=== PATIENT | male | born 1970 | race Caucasian/White ===

== ENCOUNTER 2024-04-03 15:52 | Emergency (ER) | payer BC ==
[2024-04-03] MEDS ORDERED: LIDOCAINE 1% 20 ML MDV ONE (16:08)
--- NOTE | 2024-04-03 17:20 | ER ---
Nurse's Notes [facility] Name: Mercedes Thakur Age: 53 yrs Sex: Male : 1970 Arrival Date: 04/03/2024 Time: 15:52 Bed 10 Private MD: Diagnosis: Laceration without foreign body, left lower leg Presentation: 04/03 16:12 Chief complaint: Laceration to left lower leg from chainsaw just [employer]. Bleeding hb controlled. Coronavirus screen: At this time, the client does not indicate any symptoms associated with coronavirus-19. Ebola Screen: No symptoms or risks identified at this time. Complicating Factors: There are no complicating factors for this patient. Initial Sepsis Screen: Does the patient meet any 2 criteria? No. Patient's initial sepsis screen is negative. Does the patient have a suspected source of infection? No. Patient's initial sepsis screen is negative. Risk Assessment: Do you want to hurt yourself or someone else? Patient reports no desire to harm self or others. Onset of symptoms was April 03, 2024. 16:12 Method Of Arrival: Ambulatory 16:12 Acuity: SANTO 4 hb Triage Assessment: 16:22 General: Appears in no apparent distress. comfortable, Behavior is calm, cooperative. le1 Pain: Denies pain. Neuro: No deficits noted. Cardiovascular: No deficits noted. Respiratory: No deficits noted. Injury Description: Laceration sustained to left ayon is bleeding moderately, is bleeding a small amount. Historical: - Allergies: 16:13 No Known Allergies; hb - Home Meds: 16:13 None [Active]; hb - PMHx: 16:13 None; hb - PSHx: 16:13 Left Knee Replacement; hb - Immunization history:: Adult Immunizations up to date. - Infectious Disease History:: Denies. - Social history:: Smoking status: Patient denies any tobacco usage or history of. - Family history:: not pertinent. - Hospitalizations: : No recent hospitalization is reported. Screenin:21 [facility] ED Fall Risk Assessment (Adult) History of falling in the last 3 months, le1 including since admission No falls in past 3 months (0 pts) Confusion or Disorientation No (0 pts) Intoxicated or Sedated No (0 pts) Impaired Gait No (0 pts) Mobility Assist Device Used No (0 pt) Altered Elimination No (0 pt) Score/Fall Risk Level 0 - 2 = Low Risk Oriented to surroundings, Maintained a safe environment, Educated pt \T\ family on fall prevention, incl call for assistance when getting out of bed, Assessed \T\ reinforced patient's understanding of fall precautions, Hourly rounding (assess needs \T\ fall precautionary measures) done. Abuse screen: Denies threats or abuse. Denies injuries from another. Nutritional screening: No deficits noted. Tuberculosis screening: No symptoms or risk factors identified. Assessment: 16:23 Musculoskeletal: No deficits noted. le1 Vital Signs: 16:12 BP 140 / 79; Pulse 72; Resp 16; Temp 97.3; Pulse Ox 99% on R/A; Weight 108.86 kg; hb Height 6 ft. 0 in. ; Pain 1/10; 18:04 BP 127 / 77; Pulse 65; Resp 16; Temp 98.2; Pulse Ox 98% on R/A; Pain 0/10; le1 16:12 Body Mass Index 32.55 (108.86 kg, 182.88 cm) hb 16:12 Pain Scale: Adult hb 18:04 Pain Scale: Adult le1 ED Course: 15:55 Patient arrived in ED. im 16:02 Bartolome Villagran MD is Attending Physician. rn 16:08 Angel Esquivel RN is Primary Nurse. le1 16:13 Triage completed. hb 16:14 Arm band placed on. hb 16:23 Provided Education on: use call light if needed. le1 16:23 Patient has correct armband on for positive identification. Bed in low position. Call le1 light in reach. 18:05 No provider procedures requiring assistance completed. Patient did not have IV access le1 during this emergency room visit. Administered Medications: 16:20 Drug: Lidocaine Infiltration (1 %) 1 vials 20 ml Infiltration once; to bedside {Note: le1 Administered by provider.} Volume: 20 ml; Route: Infiltration; Site: affected area; Medication: 16:23 VIS not applicable for this client. le1 Outcome: 17:19 Discharge ordered by . rn 18:05 Discharged to home ambulatory, le1 18:05 Condition: improved 18:05 Discharge instructions given to patient, Instructed on discharge instructions, follow up and referral plans. medication usage, Demonstrated understanding of instructions, follow-up care, medications, Prescriptions given X 1, 18:05 Patient left the ED. le1 Signatures: Bartolome Villagran MD MD rn Baxter, Heather, RN RN hb Mendoza, Itzel im English, LaKendric, RN RN le1
--- NOTE | 2024-04-03 17:20 | EDPHYS ---
Physician Documentation [facility] Name: Mercedes Thakur Age: 53 yrs Sex: Male : 1970 Arrival Date: 04/03/2024 Time: 15:52 Bed 10 Private MD: ED Physician Bartolome Villagran HPI: 04/03 16:32 This 53 yrs old Male presents to ER via Ambulatory with complaints of Laceration To Leg.rn 16:32 The patient has a laceration related to: doing yard work, occurred at home, and there rn are no complicating factors. The laceration(s) is(are) located on the left leg. Onset: The symptoms/episode began/occurred just prior to arrival. The patient has not experienced similar symptoms in the past. 16:32 Patient accidentally cut himself with a chainsaw, was clean blade, already got in the rn shower and put antibacterial wash as well as irrigated it. States last tetanus 2 years ago.. Historical: - Allergies: 16:13 No Known Allergies; hb - Home Meds: 16:13 None [Active]; hb - PMHx: 16:13 None; hb - PSHx: 16:13 Left Knee Replacement; hb - Immunization history:: Adult Immunizations up to date. - Infectious Disease History:: Denies. - Social history:: Smoking status: Patient denies any tobacco usage or history of. - Family history:: not pertinent. - Hospitalizations: : No recent hospitalization is reported. ROS: 16:32 Constitutional: Negative for fever, chills, and weight loss, MS/Extremity: Positive for rn laceration to the left leg Exam: 16:32 Constitutional: This is a well developed, well nourished patient who is awake, alert, rn and in no acute distress. MS/ Extremity: Pulses equal, no cyanosis. Neurovascular intact. Full, normal range of motion. Equal circumference. 10 cm clean laceration, superficial, mid to distal pretibial region of the left leg. No active bleeding. No foreign body. Vital Signs: 16:12 BP 140 / 79; Pulse 72; Resp 16; Temp 97.3; Pulse Ox 99% on R/A; Weight 108.86 kg; hb Height 6 ft. 0 in. ; Pain 1/10; 18:04 BP 127 / 77; Pulse 65; Resp 16; Temp 98.2; Pulse Ox 98% on R/A; Pain 0/10; le1 16:12 Body Mass Index 32.55 (108.86 kg, 182.88 cm) hb 16:12 Pain Scale: Adult hb 18:04 Pain Scale: Adult le1 Laceration: 17:17 Wound Repair of 10cm ( 3.9in ) subcutaneous laceration to left ayon. Distal rn neuro/vascular/tendon intact. Anesthesia: Wound infiltrated with 4 mls of 1% lidocaine. Wound prep: Extensive cleansing with betadine with hibiclenz, Wound irrigation with saline, Wound explored. Skin closed with 13 3-0 Prolene using interrupted sutures and sterile technique. Dressed with Kerlix. Patient tolerated well. MDM: 16:02 Patient medically screened. rn 17:17 Differential diagnosis: superficial laceration. Data reviewed: vital signs, nurses rn notes, and as a result, I will discharge patient. Counseling: I had a detailed discussion with the patient and/or guardian regarding the historical points, exam findings, and any diagnostic results supporting the discharge/admit diagnosis, the need for outpatient follow up, to return to the emergency department if symptoms worsen or persist or if there are any questions or concerns that arise at home. Special discussion: I discussed with the patient/guardian in detail that at this point there is no indication for admission to the hospital. It is understood, however, that if the symptoms persist or worsen the patient needs to return immediately for re-evaluation. 04/03 16:08 Order name: Suture Tray at Bedside; Complete Time: 16:19 rn 04/03 16:08 Order name: Wound Care; Complete Time: 16:20 rn 04/03 16:08 Order name: Wound dressing; Complete Time: 16:20 rn Administered Medications: 16:20 Drug: Lidocaine Infiltration (1 %) 1 vials 20 ml Infiltration once; to bedside {Note: le1 Administered by provider.} Volume: 20 ml; Route: Infiltration; Site: affected area; Disposition Summary: 04/03/24 17:19 Discharge Ordered Notes: Location: Home rn Problem: new rn Symptoms: have improved rn Condition: Stable rn Diagnosis - Laceration without foreign body, left lower leg rn Followup: rn - With: Private Physician - When: 14 days - Reason: Staple/Suture removal Discharge Instructions: - Discharge Summary Sheet rn - Laceration Care, Adult rn Forms: - Medication Reconciliation Form rn - Antibiotic rn enterostomal - Prescription Opioid Use rn - Patient Portal Instructions rn - Leadership Thank You Letter rn Prescriptions: - Cephalexin 500 mg Oral Capsule - take 1 capsule ORAL route every 12 hours for 10 days; 20 capsule; Refills: 0, rn Product Selection Permitted Signatures: Bartolome Villagran MD MD rn Baxter, Heather, RN RN hb English, LaKendric RN RN le1
[2024-04-03 18:11] VITALS: BP 127/77; TEMP 98.2; O2SAT 98
== END 2024-04-03 18:05 | disposition home or self-care (01) ==
LOC: ER 15:52
PROC: 0HQLXZZ Repair Left Lower Leg Skin, External Approach (ICD-10-PCS; principal; 2024-04-03)
DX: S81.812A Laceration without foreign body, left lower leg, initial encounter (principal)
CPT/HCPCS: 99283; 12004; J2001

== ENCOUNTER 2024-04-22 13:29 | Emergency (ER) | payer BC ==
--- NOTE | 2024-04-22 13:46 | EDPHYS ---
Physician Documentation [facility] Name: Mercedes Thakur Age: 53 yrs Sex: Male : 1970 Arrival Date: 04/22/2024 Time: 13:29 Bed IW1 Private MD: ED Physician Ramos Cain HPI: 04/22 13:46 This 53 yrs old Male presents to ER via Ambulatory with complaints of Suture Removal. kb 13:46 Pt is a 53 year old male who presents to have sutures removed from left lower leg. kb States he had sutures placed 20 days ago. Has had no problems, drainage, redness, warmth, fever. . Historical: - Allergies: 13:39 No Known Allergies; kc6 - Home Meds: 13:39 None [Active]; kc6 - PMHx: 13:39 None; kc6 - PSHx: 13:39 Left knee replacement; kc6 - Immunization history:: Adult Immunizations up to date. - Infectious Disease History:: Denies. - Social history:: Smoking status: Patient denies any tobacco usage or history of. ROS: 13:44 Constitutional: As per HPI kb Exam: 13:44 Constitutional: This is a well developed, well nourished patient who is awake, alert, kb and in no acute distress. Head/Face: Normocephalic, atraumatic. ENT: Moist Mucous membranes Cardiovascular: Regular rate Respiratory: Respirations even and unlabored. No increased work of breathing. Talking in full sentences MS/ Extremity: Pulses equal, no cyanosis. Neurovascular intact. Full, normal range of motion. Neuro: Awake and alert, GCS 15, oriented to person, place, time, and situation. Moves all extremities. Normal gait. 13:44 Skin: Wound recheck: Suture laceration closure: the wound is healing well, the edges are well approximated, no evidence of dehiscence, no drainage, no erythema, no swelling, Vital Signs: 13:38 Weight 108.86 kg (R); Height 6 ft. 0 in. (R); Pain 0/10; kc6 13:44 BP 132 / 88; Pulse 71; Resp 17 S; Temp 98(TE); Pulse Ox 100% on R/A; kc6 13:38 Body Mass Index 32.55 (108.86 kg, 182.88 cm) kc6 13:38 Pain Scale: Adult kc6 Procedures: 13:45 Suture/Staple removal: Removed 12 sutures, from left ayon, site appears well healed, kb Patient tolerated well. MDM: 13:33 Patient medically screened. kb 13:45 Data reviewed: vital signs, nurses notes. Counseling: I had a detailed discussion with kb the patient and/or guardian regarding the historical points, exam findings, and any diagnostic results supporting the discharge/admit diagnosis, the need for outpatient follow up, a family practitioner, to return to the emergency department if symptoms worsen or persist or if there are any questions or concerns that arise at home. Administered Medications: No medications were administered Disposition: 18:47 I was immediately available on-site in the Emergency Department for consultation in the ms3 care of the patient. Disposition Summary: 04/22/24 13:46 Discharge Ordered Notes: Location: Home kb Condition: Stable kb Diagnosis - Encounter for removal of sutures kb Followup: kb - With: Emergency Department - When: As needed - Reason: Worsening of condition Followup: kb - With: Private Physician - When: 2 - 3 days - Reason: Recheck today's complaints, Continuance of care, Re-evaluation by your physician Discharge Instructions: - Discharge Summary Sheet kb - Suture Removal, Care After kb Forms: - Medication Reconciliation Form kb - Antibiotic Education kb - Prescription Opioid Use kb - Patient Portal Instructions kb - Leadership Thank You Letter kb Signatures: Marcia Weiss FNP-C FNP-Ramos Jensen DO DO ms3 Jennifer Fernandez, RN RN kc6
--- NOTE | 2024-04-22 13:46 | ER ---
Nurse's Notes [facility] Name: Mercedes Thakur Age: 53 yrs Sex: Male : 1970 Arrival Date: 04/22/2024 Time: 13:29 Bed IW1 Private MD: Diagnosis: Encounter for removal of sutures Presentation: 04/22 13:38 Chief complaint: Patient states: he took a chainsaw to the leg twenty days ago and is kc6 here to get the sutures removed from the LLE. Coronavirus screen: At this time, the client does not indicate any symptoms associated with coronavirus-19. Ebola Screen: No symptoms or risks identified at this time. Initial Sepsis Screen: Does the patient meet any 2 criteria? No. Patient's initial sepsis screen is negative. Does the patient have a suspected source of infection? No. Patient's initial sepsis screen is negative. Risk Assessment: Do you want to hurt yourself or someone else? Patient reports no desire to harm self or others. Onset of symptoms was April 22, 2024. 13:38 Method Of Arrival: Ambulatory [facility] 13:38 Acuity: SANTO 4 6 Triage Assessment: 13:39 General: Appears in no apparent distress. comfortable, well groomed, well developed, [facility] Behavior is calm, cooperative, appropriate for age. Pain: Denies pain. Historical: - Allergies: 13:39 No Known Allergies; kc6 - Home Meds: 13:39 None [Active]; kc6 - PMHx: 13:39 None; kc6 - PSHx: 13:39 Left knee replacement; kc6 - Immunization history:: Adult Immunizations up to date. - Infectious Disease History:: Denies. - Social history:: Smoking status: Patient denies any tobacco usage or history of. Screenin:40 [facility] ED Fall Risk Assessment (Adult) History of falling in the last 3 months, kc6 including since admission No falls in past 3 months (0 pts) Confusion or Disorientation No (0 pts) Intoxicated or Sedated No (0 pts) Impaired Gait No (0 pts) Mobility Assist Device Used No (0 pt) Altered Elimination No (0 pt) Score/Fall Risk Level 0 - 2 = Low Risk Oriented to surroundings. Abuse screen: Denies threats or abuse. Denies injuries from another. Nutritional screening: No deficits noted. Tuberculosis screening: No symptoms or risk factors identified. Assessment: 13:41 Reassessment: TABATHA Chong in triage removing sutures from LLE. kc6 Vital Signs: 13:38 Weight 108.86 kg (R); Height 6 ft. 0 in. (R); Pain 0/10; kc6 13:44 BP 132 / 88; Pulse 71; Resp 17 S; Temp 98(TE); Pulse Ox 100% on R/A; kc6 13:38 Body Mass Index 32.55 (108.86 kg, 182.88 cm) kc6 13:38 Pain Scale: Adult kc6 ED Course: 13:31 Patient arrived in ED. im 13:32 [facility] kb 13:32 Ramos Cain DO is Attending Physician. kb 13:39 Triage completed. kc6 13:39 Arm band placed on. kc6 13:40 Patient has correct armband on for positive identification. kc6 13:46 Removal of Removed sutures from left ayon Suture site is well healed Patient tolerated kc6 well. 13:46 No provider procedures requiring assistance completed. Patient did not have IV access kc6 during this emergency room visit. Patient maintains SpO2 saturation greater than 95% on room air. Administered Medications: No medications were administered Medication: 13:47 VIS not applicable for this client. kc6 Outcome: 13:46 Discharge ordered by MD. kb 13:46 Discharged to home ambulatory, kc6 13:46 Condition: good 13:46 Discharge instructions given to patient, Instructed on discharge instructions, follow up and referral plans. wound care, Demonstrated understanding of instructions, follow-up care, wound care, 13:47 Patient left the ED. [facility] Signatures: Marcia Weiss FNP-C FNP-Jennifer Santos RN RN kc6 Michaelle Soto im Corrections: (The following items were deleted from the chart) 13:41 13:38 Chief complaint: Patient states: he took a chainsaw to the leg twenty days ago kc6 and is here to get the sutures removed from the RLE kc6
[2024-04-22 13:53] VITALS: BP 132/88; TEMP 98; O2SAT 100
== END 2024-04-22 13:47 | disposition home or self-care (01) ==
LOC: ER 13:29
DX: Z48.02 Encounter for removal of sutures (principal)
CPT/HCPCS: 99281; 99283